=== PATIENT | male | born 1965 | race Caucasian/White ===

== ENCOUNTER 2016-04-08 11:31 | Inpatient (IN) | payer MEDICAID, OTHER ==
[~2016-04-08] VITALS: Ht 177.8 cm; Wt 77.1 kg
[~2016-04-08 11:31] MED LIST: COZAAR50 MG PO; ORETIC25 MG PO
[2016-04-08 11:36] VITALS: BP 146/83
--- NOTE | 2016-04-08 12:42 | NUR ---
PT AMBULATED TO BED 3 AT THIS TIME.
--- NOTE | 2016-04-08 12:44 | NUR ---
Patient being evaluated by physician at bedside.
[2016-04-08] MEDS ORDERED: ONDANSETRON 4 MG/2 ML VIAL IVP ONE (12:45)
[2016-04-08] MEDS ORDERED: ASPIRIN 325 MG TAB PO ONE (12:45)
[2016-04-08] MEDS ORDERED: fentaNYL 0.05 MG/ML VIAL IVP ONE (12:45)
--- NOTE | 2016-04-08 13:20 | NUR ---
50/M HERE FOR CHEST PAIN X4 DAYS. HX HTN, HYPERLIPIDEMIA. VSS. DENIES N/V/D. PT PLACED ON MONITOR. CP PROTOL IN PLACE. BECKY PALACIO MADE AWARE.
--- NOTE | 2016-04-08 16:00 | NUR ---
Patient will be admitted to care of DR WRIGHT. Admited to TELE. Will go to [id number]. Belongings list completed. Report to MAURICIO MADRIGAL.
[2016-04-08] MEDS ORDERED: ACETAMINOPHEN 325 MG TAB PO PRN (16:15)
[2016-04-08] MEDS ORDERED: MORPHINE SULFATE 2 MG/ML SYR IVP PRN (16:15)
[2016-04-08] MEDS ORDERED: NITROGLYCERIN 0.4 MG TAB SL PRN (16:15)
[2016-04-08] MEDS ORDERED: ONDANSETRON 4 MG/2 ML VIAL IVP PRN (16:15)
--- NOTE | 2016-04-08 16:16 | NUR ---
TRANSFERRED TO [facility] VIA GURNEY WITH EMT.
--- NOTE | 2016-04-08 16:30 | NUR ---
ADMITTED PT FROM ER TO TELE RM 119A, DX CHEST PAIN; NO C/O OF CHEST PAIN OR SOB AT THIS TIME, VSS. IV SL TO RIGHT FA, SITE ASYMPTOMATIC. SKIN INTACT. ADMIT ORDERS ACKNOWLEDGED. ROUTINE/PLAN OF CARE DISCUSSED AND REVIEWED, ORIENTED PT TO ROOM AND CALL LIGHT. SAFETY PRECAUTIONS OBSERVED AND MAINTAINED. ENCOURAGED PT TO CALL FOR ASSISTANCE NEEDED.
[2016-04-08 16:46] VITALS: BP 157/89
[2016-04-08] MEDS ORDERED: METOPROLOL 25 MG TAB PO SCH (17:00)
[2016-04-08] MEDS: HYDROcodone/APAP 5/325 MG 1 TAB TAB PO PRN (17:07)
--- NOTE | 2016-04-08 17:15 | NUR ---
ADMINISTERED DUE METOPROLOL ORDERED WITH EDUCATION; NORCO PO GIVEN FOR C/O UPPER BACK PAIN, SEE PAIN ASSESSMENT; PT TOLERATED WELL. SPOKE WITH DR HYDE BY TELEPHONE, LAUREN ENTERED AND CARRIED OUT FOR ECHO AND STRESS TEST IN AM. DISCUSSED PLAN OF CARE WITH PATIENT. WILL CONTINUE TO MONITOR.
--- NOTE | 2016-04-08 17:31 | NUR ---
DR WRIGHT AT BEDSIDE TO EVALUATE PT.
--- NOTE | 2016-04-08 18:43 | NUR ---
PT SEEN AND ASSESSED BY DR HYDE, NEW ORDERS ACKNOWLEDGED AND CARRIED OUT.
--- NOTE | 2016-04-08 19:27 | NUR ---
CONDITION STABLE, ENDORSED PLAN OF CARE TO WELFARE CASE WORKER.
--- NOTE | 2016-04-08 19:28 | NUR ---
RECEIVED REPORT FROM DAY NURSEROHAN. PATIENT RESTING IN BED. NO RESPIRATORY DISTRESS, SOB, OR DISCOMFORT. PATIENT DENIES ANY CHEST PAIN AT THIS TIME. INITIAL ASSESSMENT AND BODY CHECK DONE. PATIENT IS AOX4, SKIN IS INTACT, IV ACCESS TO RIGHT FOREARM 20G, PATENT. DISCUSSED PLAN OF CARE, MEDICATION REGIMENT, AND PAIN MANAGEMENT WITH PATIENT. PLACED PATIENT ON SAFETY PRECAUTIONS. CALL LIGHT LEFT WITHIN REACH, WILL CONTINUE TO MONITOR.
[2016-04-08 20:00] VITALS: BP 132/78
[2016-04-08] MEDS: NITROGLYCERIN 2% 1 GM PKT TP SCH (20:28)
[2016-04-08] MEDS: SIMVASTATIN 20 MG TAB PO SCH (20:29)
--- NOTE | 2016-04-08 22:06 | NUR ---
PATIENT RESTING IN BED, WATCHING TELEVISION. NO RESPIRATORY DISTRESS, SOB, OR DISCOMFORT. CALL LIGHT LEFT WITHIN REACH, WILL CONTINUE TO MONITOR.
[2016-04-09] VITALS: BP 130/71
--- NOTE | 2016-04-09 00:57 | NUR ---
PATIENT IN BED, SLEEPING. NO RESPIRATORY DISTRESS, SOB, OR DISCOMFORT. CALL LIGHT LEFT WITHIN REACH, WILL CONTINUE TO MONITOR.
--- NOTE | 2016-04-09 03:04 | NUR ---
PATIENT ASLEEP. NO RESPIRATORY DISTRESS, SOB, OR DISCOMFORT. CALL LIGHT LEFT WITHIN REACH, WILL CONTINUE TO MONITOR.
[2016-04-09 04:00] VITALS: BP 129/78
[2016-04-09] MEDS: NITROGLYCERIN 2% 1 GM PKT TP SCH ×4 (05:00→21:06)
--- NOTE | 2016-04-09 05:02 | NUR ---
NITRO-BID PASTE HELD AT THIS TIME DUE TO CARDIAC STRESS TEST TO BE DONE IN THE AM. PATIENT DENIES ANY CHEST PAIN AT THIS TIME. NO RESPIRATORY DISTRESS, SOB, OR DISCOMFORT. CALL LIGHT LEFT WITHIN REACH, WILL CONTINUE TO MONITOR.
--- NOTE | 2016-04-09 06:06 | NUR ---
PATIENT SLEEPING. NO RESPIRATORY DISTRESS, SOB, OR DISCOMFORT. CALL LIGHT LEFT WITHIN REACH, WILL CONTINUE TO MONITOR.
--- NOTE | 2016-04-09 07:18 | NUR ---
REPORT GIVEN TO DAY NURSE, BABATUNDE GARY) AND ROHAN. PATIENT RESTING IN BED, STABLE. NO RESPIRATORY DISTRESS, SOB, OR DISCOMFORT. ALL NEEDS ATTENDED TO DURING SHIFT, CALL LIGHT LEFT WITHIN REACH.
--- NOTE | 2016-04-09 07:30 | NUR ---
RECEIVED REPORT FROM THE MUSEUM ATTENDANT NURSE AT BEDSIDE. PATIENT IS AWAKE, ALERT, ORIENTED X4. IV ON THE RIGHT FOREARM INTACT AND PATENT. VITALS TAKEN AND WITHIN THE NORMAL LIMIT. ON ROOM AIR, NO SOB. DENIED ANY PAIN. NO S/S OF DISTRESS. SKIN INTACT. SAFETY MEASURED CHECKED AND WILL CONTINUE TO MONITOR. CALL LIGHT WITHIN REACH.
[2016-04-09 08:00] VITALS: BP 137/67
[2016-04-09] MEDS: ASPIRIN 81 MG TAB.CHEW PO SCH ×2 (08:00→09:00)
--- NOTE | 2016-04-09 08:28 | NUR ---
PATIENT REFUSED TREADMILL STRESS TEST DUE TO HIP PAIN. DR HYDE MADE AWARE, LEXISCAN STRESS TEST ORDERED FOR 1230 TODAY. DISCUSSED PLAN OF CARE WITH PT INCLUDING NPO STATUS, REINFORCED SMOKING POLICY; PT VERBALIZES UNDERSTANDING AND COMPLIANCE.
[2016-04-09] MEDS ORDERED: REGADENOSON 0.4 MG/5 ML SYR IV ONE (08:45)
[2016-04-09] MEDS: HYDROCHLOROTHIAZIDE 25 MG TAB PO SCH (09:00)
[2016-04-09] MEDS: LOSARTAN 50 MG TAB PO SCH (09:00)
--- NOTE | 2016-04-09 09:00 | NUR ---
DUE MEDS NOT GIVEN BECAUSE PT IS NPO. PATIENT ASLEEP, NO S/S OF DISTRESS. CALL LIGHT WITHIN REACH.
--- NOTE | 2016-04-09 09:20 | NUR ---
PATIENT HAS BEEN SCREENED AND CATEGORIZED MODERATE NUTRITION RISK. PATIENT WILL BE SEEN WITHIN 3-5 DAYS OF ADMISSION. 04/11/16-04/13/[address]
[2016-04-09] MEDS: ENOXAPARIN 40 MG/0.4 ML SYR SUBQ SCH (09:27)
--- NOTE | 2016-04-09 11:30 | NUR ---
PT TAKEN TO NUCLEAR MED FOR LEXISCAN.
[2016-04-09] MEDS ORDERED: REGADENOSON 0.4 MG/5 ML SYR IV SCH (12:30)
[2016-04-09] MEDS ORDERED: ASPIRIN ADULT L81 M1 PO (13:23)
[2016-04-09] MEDS ORDERED: LOPRESSOR25 MG PO (13:23)
--- NOTE | 2016-04-09 14:14 | NUR ---
LEXISCAN STRESS TEST DONE
[2016-04-09 14:15] VITALS: BP 149/72
--- NOTE | 2016-04-09 14:20 | NUR ---
PT RETURNED TO UNIT IN STABLE CONDITION, VSS. SITTING UP EATING LUNCH TRAY. NO COMPLAINTS OF PAIN OR DISTRESS AT THIS TIME. SAFETY PRECAUTIONS MAINTAINED. PER NM TECH, ACCURATE RESULTS COULD NOT BE PRODUCED DUE TO MACHINE MALFUNCTIONING.
--- NOTE | 2016-04-09 14:48 | NUR ---
[id number] INITIAL REVIEW FAXED TO [facility] [phone]
[2016-04-09 16:00] VITALS: BP 114/57
--- NOTE | 2016-04-09 16:00 | NUR ---
VSS, PT RESTING COMFORTABLY IN BED.
[2016-04-09] MEDS: METOPROLOL 25 MG TAB PO SCH (17:00)
--- NOTE | 2016-04-09 18:00 | NUR ---
CONDITION STABLE. NO S/S DISTRESS. ALL NEEDS ARE MET AT THIS TIME.
--- NOTE | 2016-04-09 19:19 | NUR ---
CONDITION STABLE, ENDORSED PLAN OF CARE TO WELDING PANTOGRAPH OPERATOR RN.
--- NOTE | 2016-04-09 19:25 | NUR ---
RECEIVED REPORT FROM DAY NURSEROHAN. PATIENT RESTING IN BED, WATCHING TELEVISION. NO RESPIRATORY DISTRESS, SOB, OR DISCOMFORT. PATIENT DENIES ANY PAIN AT THIS TIME. INITIAL ASSESSMENT AND BODY CHECK DONE. PATIENT IS AOX4, SKIN IS INTACT, IV ACCESS TO LEFT WRIST 22G, PATENT. DISCUSSED PLAN OF CARE, MEDICATION REGIMENT, AND PAIN MANAGEMENT WITH PATIENT. PATIENT VERBALIZED UNDERSTANDING. PLACED PATIENT ON SAFETY PRECAUTIONS. CALL LIGHT LEFT WITHIN REACH, WILL CONTINUE TO MONITOR.
[2016-04-09 20:00] VITALS: BP 115/74
--- NOTE | 2016-04-09 20:12 | NUR ---
DR. HYDE CALLED IN REGARDS TO LEXISCAN RESULTS. UPDATED MD OF RESULTS NOT UP YET. MD VERBALIZED UNDERSTANDING.
[2016-04-09] MEDS: SIMVASTATIN 20 MG TAB PO SCH (21:06)
--- NOTE | 2016-04-09 22:11 | NUR ---
PATIENT IN BED, SLEEPING. NO RESPIRATORY DISTRESS, SOB, OR DISCOMFORT. CALL LIGHT LEFT WITHIN REACH, WILL CONTINUE TO MONITOR.
[2016-04-10] VITALS: BP 119/76
--- NOTE | 2016-04-10 01:07 | NUR ---
PATIENT ASLEEP. NO RESPIRATORY DISTRESS, SOB, OR DISCOMFORT. CALL LIGHT LEFT WITHIN REACH, WILL CONTINUE TO MONITOR.
--- NOTE | 2016-04-10 03:02 | NUR ---
PATIENT SLEEPING. NO RESPIRATORY DISTRESS, SOB, OR DISCOMFORT. CALL LIGHT LEFT WITHIN REACH, WILL CONTINUE TO MONITOR.
[2016-04-10 04:00] VITALS: BP 135/80
[2016-04-10] MEDS: NITROGLYCERIN 2% 1 GM PKT TP SCH ×2 (05:33→13:00)
--- NOTE | 2016-04-10 06:03 | NUR ---
PATIENT IN BED, ASLEEP. NO RESPIRATORY DISTRESS, SOB, OR DISCOMFORT. CALL LIGHT LEFT WITHIN REACH, WILL CONTINUE TO MONITOR.
--- NOTE | 2016-04-10 07:15 | NUR ---
REPORT GIVEN TO DAY NURSEROHAN. PATIENT RESTING IN BED, STABLE. NO RESPIRATORY DISTRESS, SOB, OR DISCOMFORT. ALL NEEDS ATTENDED TO DURING SHIFT, CALL LIGHT LEFT WITHIN REACH.
--- NOTE | 2016-04-10 07:30 | NUR ---
RECEIVED PT RESTING COMFORTABLY IN BED, AAOX4, NO C/O OF CHEST PAIN OR SOB AT THIS TIME. IV SL TO LEFT WRIST, SITE ASYMPTOMATIC. ROUTINE/PLAN OF CARE DISCUSSED AND REVIEWED, PT VERBALIZES UNDERSTANDING AND COMPLIANCE. SAFETY PRECAUTIONS OBSERVED AND MAINTAINED. ENCOURAGED PT TO CALL FOR ASSISTANCE NEEDED.
[2016-04-10 08:00] VITALS: BP 139/45
[2016-04-10] MEDS: METOPROLOL 25 MG TAB PO SCH (08:00)
[2016-04-10] MEDS: HYDROCHLOROTHIAZIDE 25 MG TAB PO SCH (09:00)
[2016-04-10] MEDS: ASPIRIN 81 MG TAB.CHEW PO SCH (09:00)
[2016-04-10] MEDS: LOSARTAN 50 MG TAB PO SCH (09:00)
[2016-04-10] MEDS: ENOXAPARIN 40 MG/0.4 ML SYR SUBQ SCH (09:00)
--- NOTE | 2016-04-10 09:03 | NUR ---
VS NOTED. HR BELOW 60, HELD METOPROLOL PO. PT REFUSED LOVENOX, BELIEVES HE IS NOT AT RISK SINCE HE AMBULATES OCCASIONALLY. ENCOURAGED PT TO WALK AROUND UNIT TODAY. ADMINISTERED REMAINING SCHEDULED MED ORDERED WITH EDUCATION. PT TOLERATED WELL. INDEPENDENT ADLs OBSERVED. WILL CONTINUE TO MONITOR.
[2016-04-10] MEDS ORDERED: CHLORHEXADINE GLUC 2% CLOTH TP SCH (10:00)
[2016-04-10] MEDS ORDERED: MUPIROCIN 2% OINT 22 GM TUBE TP SCH (10:00)
[2016-04-10 12:00] VITALS: BP 132/73
--- NOTE | 2016-04-10 13:00 | NUR ---
HR BELOW 60. PT RESTING QUIETLY IN BED, DENIES ANY PAIN OR DISTRESS. HELD SCHEDULED NITRO. AWARE.
[2016-04-10] MEDS: HYDROcodone/APAP 5/325 MG 1 TAB TAB PO PRN (13:39)
[2016-04-10 16:00] VITALS: BP 131/82
[2016-04-10 16:20] VITALS: BP 131/82
--- NOTE | 2016-04-10 16:30 | NUR ---
DISCHARGE PRESCRIPTIONS, INSTRUCTIONS, AND EDUCATION GIVEN, DISCUSSED WITH PT AT BEDSIDE; PT VERBALIZES UNDERSTANDING AND COMPLIANCE. ALL FORMS ARE SIGNED. DC'D IV WITH CANNULA INTACT. CONDITION STABLE.
--- NOTE | 2016-04-10 16:45 | NUR ---
DISCHARGED PT HOME AT THIS TIME IN STABLE CONDITION.
== END 2016-04-10 16:45 | disposition home or self-care (01) | DRG 203 ==
LOC: MED 11:31 → MTU 14:38
PROVIDERS: ADMIT Hospitalist; ATTEND Hospitalist
DX: R07.89 Other chest pain (principal); E87.1 Hypo-osmolality and hyponatremia; I10 Essential (primary) hypertension; E78.5 Hyperlipidemia, unspecified; K21.9 Gastro-esophageal reflux disease without esophagitis; F12.90 Cannabis use, unspecified, uncomplicated; F17.210 Nicotine dependence, cigarettes, uncomplicated; Z98.890 Other specified postprocedural states; Z71.6 Tobacco abuse counseling; Z79.899 Other long term (current) drug therapy; Z86.73 Personal history of transient ischemic attack (TIA), and cerebral infarction without residual deficits; Z82.49 Family history of ischemic heart disease and other diseases of the circulatory system

== ENCOUNTER 2017-10-10 10:25 | Inpatient (IN) | payer MEDICAID, OTHER ==
[~2017-10-10] VITALS: Ht 177.8 cm; Wt 84.8 kg
[~2017-10-10 10:25] MED LIST changes: +ASPI81CT95 PO; +COZ50 PO; -COZAAR50 MG PO; +METO25TA PO; +ORE25 PO; -ORETIC25 MG PO
[2017-10-10 10:33] VITALS: BP 118/77
--- NOTE | 2017-10-10 10:39 | NUR ---
PATIENT AMBULATED TO BED 3 AT THIS TIME.
--- NOTE | 2017-10-10 10:39 | NUR ---
REPORT GIVEN TO MAURICIO BURCH
--- NOTE | 2017-10-10 10:40 | NUR ---
PT. CAME INTO THE ED DUE TO ABD PAIN X 2 DAYS. PT. STATES " ON TUESDAY I WOKE UP AND MY STOMACH HURTED AND I TRIED TO GO POOP BUT I COULDNT UNTIL LATER THAT NIGHT AND IT WAS REALLY HARD AND A LITTLE BIT AND EVER SINCE THEN I HAVNT BEEN ABLE TO GO". PT. DENIES ANY N/V/D. PT. HAS 3/10 PAIN THAT STARTS IN LOWER ABD AND GROIN AREA THAT RADIATES ALL OVER ABD. PT. HAS ROUND AND FIRM ABD THAT IS TENDER UPON PALPATION IN THE LOWER ABD. ER MD NOTIFIED. WILL CONTINUE TO MONITOR.
[2017-10-10] MEDS ORDERED: NACL 0.9% 1,000 ML IV SCH (11:17)
[2017-10-10] MEDS ORDERED: KETOROLAC 30 MG/ML VIAL IVP ONE (11:20)
--- NOTE | 2017-10-10 11:30 | NUR ---
PT. IS RESTING COMFORTABLY IN BED, RR EVEN AND UNLABORED. WILL CONTINUE TO MONITOR.
[2017-10-10 11:48] LABS: APPEARANCE,URINE CLEAR (CLEAR); BILIRUBIN,URINE 1+ (NEGATIVE); BLOOD, URINE 1+ (NEGATIVE); COLOR,URINE YELLOW (YELLOW); LEUKOCYTE ESTERASE ,URINE NEGATIVE (NEGATIVE); NITRITE, URINE NEGATIVE (NEGATIVE); UGLUCOSE NEGATIVE (NEGATIVE)
[2017-10-10 11:58] LABS: RBC,URINE 0-5 (RARE) /HPF (0-5); WBC,URINE 0-5 (RARE) /HPF (0-5)
[2017-10-10 11:59] LABS: ALBUMIN 3.6 g/dL (3.4-5.0); CARBON DIOXIDE 28.1 mmol/L (21-32); CREATININE 1.4 mg/dL (0.7-1.3); POTASSIUM 4.1 mmol/L (3.5-5.1); TOTAL BILIRUBIN 0.8 mg/dL (0.0-1.0)
--- NOTE | 2017-10-10 12:30 | NUR ---
PT. RESTING COMFORTABLY IN BED, RR EVEN AND UNLABORED. DENIES ANY PAIN AT THIS TIME. BED IN LOWEST POSITION WILL CONTINUE TO MONITOR.
[2017-10-10] MEDS ORDERED: PIPERACILLIN/TAZOBACTAM 3.375 GM in DEXTROSE 5% 50 ML IV ONE (12:55)
[2017-10-10] MEDS ORDERED: PIPERACILLIN/TAZOBACTAM 3.375 GM VIAL IV ONE (13:06)
--- NOTE | 2017-10-10 13:30 | NUR ---
PT. RESTING COMFORTABLY, RR EVEN AND UNLABORED. WILL CONTINUE TO MONITOR.
[2017-10-10 13:38] LABS: BASOPHILS % (AUTO) 0.2 % (0.0-2.0); EOSINOPHILS # (AUTO) 0.1 K/uL (0-0.4); EOSINOPHILS % (AUTO) 0.3 % (0.0-4.0); HEMATOCRIT 43.8 % (36-52); HEMOGLOBIN 14.5 g/dL (12.0-18.0); LYMPHOCYTES # (AUTO) 1.6 K/uL (2.0-11.5); MEAN CORPUSCULAR HEMOGLOBIN 30 pg (27-31); MEAN CORPUSCULAR HGB CONC 33 g/dL (33-37); MEAN CORPUSCULAR VOLUME 91.2 fL (80-94); MONOCYTES # (AUTO) 1.8 K/uL (0.8-1.0); MONOCYTES % (AUTO) 10.3 % (1.7-9.3); NEUTROPHILS # (AUTO) 13.9 K/uL (1.8-7.7); NEUTROPHILS % (AUTO) 80.2 % (42.2-75.2); PLATELET COUNT (AUTO) 297 K/uL (140-450); RED CELL DISTRIBUTION WIDTH 14.1 % (11.6-13.7); WHITE BLOOD COUNT (AUTO) 17.4 K/uL (4.8-10.8)
--- NOTE | 2017-10-10 14:45 | NUR ---
PT. RESTING COMFORTABLY IN BED, RR EVEN AND UNLABORED. BED IN LOWEST POSITION. WILL CONTINUE TO MONITOR.
[2017-10-10] MEDS: LACTATED RINGERS 1,000 ML IV SCH (14:54)
[2017-10-10] MEDS ORDERED: ACETAMINOPHEN 325 MG TAB PO PRN (14:55)
[2017-10-10] MEDS ORDERED: ALBUTEROL 0.083% 2.5 MG/3 ML NEBU IH PRN (14:55)
[2017-10-10] MEDS ORDERED: ONDANSETRON 4 MG/2 ML VIAL IVP PRN (14:55)
--- NOTE | 2017-10-10 16:11 | NUR ---
Patient will be admitted to care of DR. FARFAN . Admited to MED SURG . Will go to room 113. Belongings list completed. Report to MAURICIO PEREZ
[2017-10-10 16:20] VITALS: BP 132/78
--- NOTE | 2017-10-10 16:20 | NUR ---
PT ARRIVED FROM ER, REPORT RECEIVED FROM NURSE, PT AAOX4, RESP EVEN UNLABORED, SKIN WARM DRY COLRO WNL, AMBULATES WELL WITH STEADY GAIT FROM HALLWAY TO BED, PT DENIES PAIN AT THIS TIME, PLAN OF CARE REVIEWED, PT ORIENTED TO ROOM AND FLOOR, SAFETY MEASURS IN PLACE, WILL CONTINUE TO MONITOR.
[2017-10-10] MEDS: MORPHINE SULFATE 4 MG/ML SYR IVP PRN (17:13)
[2017-10-10] MEDS: AMPICILLIN/SULBACTAM 1.5 GM in NACL 0.9% 50 ML IV SCH ×2 (18:18→23:52)
--- NOTE | 2017-10-10 19:28 | NUR ---
REPORT GIVEN TO GEOSCIENCES FACULTY MEMBER NURSE EDWIN MARTÍNEZ, PT IN STABLE CONDITION.
--- NOTE | 2017-10-10 19:30 | NUR ---
RECEIVED REPORT FROM DAYSHIFT NURSE AT BEDSIDE FOR CONTINUITY OF CARE PT AAOX4. PT IV NOTED LAC 22G LR 100ML/HR. NO SOB NO S/S OF DISTRESS ON RA. BED LOWERED CALL LIGHT WITHIN REACH WILL CONTINUE TO MONITOR.
[2017-10-10 20:00] VITALS: BP 125/80
[2017-10-10] MEDS: NICOTINE TRANSD SYS 21 MG/24 HR PATCH TD SCH (20:20)
[2017-10-10] MEDS: MORPHINE SULFATE 2 MG/ML SYR IVP PRN (23:52)
--- NOTE | 2017-10-11 00:52 | NUR ---
ADMIN PAIN MED 1 HR AGO. PT IS RESTING IN BED. WILL CONTINUE TO MONITOR.
[2017-10-11] MEDS: LACTATED RINGERS 1,000 ML IV SCH ×2 (00:54→14:06)
[2017-10-11] MEDS: LORazepam 2 MG/ML VIAL IVP PRN (01:20)
--- NOTE | 2017-10-11 02:20 | NUR ---
PT WAS GIVEN MORPHINE 4MG 1 HR AGO. PT IS SLEEPING, 0/10 PAIN. WILL CONTINUE TO MONITOR.
[2017-10-11] MEDS: AMPICILLIN/SULBACTAM 1.5 GM in NACL 0.9% 50 ML IV SCH ×3 (06:26→18:25)
[2017-10-11 06:52] LABS: BASOPHILS # (AUTO) 0.1 K/uL (0.00-0.22); BASOPHILS % (AUTO) 0.4 % (0.0-2.0); EOSINOPHILS # (AUTO) 0.2 K/uL (0-0.4); EOSINOPHILS % (AUTO) 1.6 % (0.0-4.0); HEMATOCRIT 40.4 % (36-52); HEMOGLOBIN 13.8 g/dL (12.0-18.0); LYMPHOCYTES # (AUTO) 1.6 K/uL (2.0-11.5); LYMPHOCYTES % (AUTO) 10.1 % (20.5-51.1); MEAN CORPUSCULAR HEMOGLOBIN 31 pg (27-31); MEAN CORPUSCULAR HGB CONC 34 g/dL (33-37); MEAN CORPUSCULAR VOLUME 90.5 fL (80-94); MONOCYTES # (AUTO) 1.5 K/uL (0.8-1.0); MONOCYTES % (AUTO) 9.9 % (1.7-9.3); NEUTROPHILS # (AUTO) 12.1 K/uL (1.8-7.7); PLATELET COUNT (AUTO) 266 K/uL (140-450); RED BLOOD CELL COUNT(AUTO) 4.47 MIL/uL (4.20-6.10); RED CELL DISTRIBUTION WIDTH 13.9 % (11.6-13.7); WHITE BLOOD COUNT (AUTO) 15.5 K/uL (4.8-10.8)
--- NOTE | 2017-10-11 07:46 | NUR ---
ENDORSED REPORT TO DAYSHIFT NURSE AT BEDSIDE FOR CONTINUITY OF CARE.
--- NOTE | 2017-10-11 07:50 | NUR ---
RECEIVED PT FROM MASTER CONTROL SUPERVISOR NURSE, PT IS AWAKE LYING ON THE BED WITH SIDE RAILS UP AND CALL LIGHT WITHIN REACH. PT HAS AN IV LINE ON THE LEFT AC G.22, INTACT WITH LR AT 100ML/HR. PT WAS ON NPO AND PLAN OF CARE WAS DISCUSSED AND PT VERBALIZED UNDERSTANDING. NO SIGN OF DISTRESS NOTED ON THE PT. WILL CONTINUE TO MONITOR.
[2017-10-11 08:00] VITALS: BP 125/75
--- NOTE | 2017-10-11 08:20 | NUR ---
PT IS AWAKE AND VITAL SIGN TAKE AND IS STABLE. PT IS ON CONTACT ISOLATION. NO SIGN OF DISTRESS NOTED AND WILL CONTINUE TO MONITOR.
[2017-10-11 09:03] LABS: ALBUMIN 3.3 g/dL (3.4-5.0); CARBON DIOXIDE 27.8 mmol/L (21-32); CREATININE 1.5 mg/dL (0.7-1.3); MAGNESIUM 1.3 mg/dL (1.8-2.4); POTASSIUM 3.8 mmol/L (3.5-5.1); TOTAL BILIRUBIN 0.7 mg/dL (0.0-1.0)
[2017-10-11] MEDS: ENOXAPARIN 40 MG/0.4 ML SYR SUBQ SCH (09:07)
--- NOTE | 2017-10-11 09:26 | NUR ---
PATIENT HAS BEEN SCREENED AND CATEGORIZED MODERATE NUTRITION RISK. PATIENT WILL BE SEEN WITHIN 3-5 DAYS OF ADMISSION. 10/13/17 - 10/15/[address]
[2017-10-11] MEDS: MORPHINE SULFATE 2 MG/ML SYR IVP PRN ×2 (10:41→21:20)
--- NOTE | 2017-10-11 11:09 | NUR ---
CM NOTE INITIAL REVIEW FAXED TO [facility] [phone] AND TO DESHAWN ROSALES [phone] PH# [phone] EXT [phone], EPIFANIO AZUL [phone]
--- NOTE | 2017-10-11 14:10 | NUR ---
STARTED A NEW IV FLUID BAG TO THE PT.
--- NOTE | 2017-10-11 15:10 | NUR ---
PT WAS SEEN AND TALKED TO BY DR. FARFAN.
[2017-10-11 16:00] VITALS: BP 135/84
--- NOTE | 2017-10-11 18:25 | NUR ---
PT IS AWAKE AND MEDICATION GIVEN VIA IVPB. PT TOLERATED IT AND NO SIGN OF DISTRESS NOTED. WILL MONITOR.
--- NOTE | 2017-10-11 19:15 | NUR ---
ENDORSED PT TO KINESIOLOGIST NURSEEDWIN FOR CONTINUITY OF CARE. PT IS STABLE AT THIS TIME.
--- NOTE | 2017-10-11 19:30 | NUR ---
RECEIVED REPORT FFOM DAYSHIFT NURSE AT BEDSIDE. IV NOTED RFA 20 G NS 100ML/HR. NO SOB NO S/S OF DISTRESS ON RA.BED LOWERED CALL LIGHT WITHIN REACH WILL CONTINUE TO MONITOR.
[2017-10-11 20:00] VITALS: BP 133/76
[2017-10-11] MEDS: NICOTINE TRANSD SYS 21 MG/24 HR PATCH TD SCH (21:20)
--- NOTE | 2017-10-11 22:20 | NUR ---
MORPHINE WAS ADMIN 1HR AGO AND PT IS CURRENTLY SLEEPING NO SOB NO S/S OF DISTRESS. WILL CONTINUE TO MONITOR.
[2017-10-12] MEDS: LACTATED RINGERS 1,000 ML IV SCH ×2 (01:27→06:18)
[2017-10-12] MEDS: AMPICILLIN/SULBACTAM 1.5 GM in NACL 0.9% 50 ML IV SCH ×4 (01:49→18:37)
[2017-10-12] MEDS: LORazepam 2 MG/ML VIAL IVP PRN (01:50)
--- NOTE | 2017-10-12 02:50 | NUR ---
ADMIN ADIVAN FOR ANXIETY. PT RESTING IN BED MEDICATION WAS EFFECTIVE.
--- NOTE | 2017-10-12 07:20 | NUR ---
ENDORSED REPORT TO DAYSIAFT NURSE FOR CONTINUITY OF CARE.
--- NOTE | 2017-10-12 07:25 | NUR ---
RECEIVED PT FROM CASHIER HOST/HOSTESS NURSEEDWIN, PT IS AWAKE LYING ON THE BED WITH SIDE RAILS UP AND CALL LIGHT WITHIN REACH, PT HAS AN IV LINE ON THE RIGHT FA G. 22 INTACT WITH LR AT 100ML/HR. PLAN OF CRE WAS DISCUSSED AND PT VERBALIZED UNDERSTANDING. NO SIGN OF DISTRESS NOTED AND WILL CONTINUE TO MONITOR.
--- NOTE | 2017-10-12 07:55 | NUR ---
PT IS AWAKE AND IS HAVING HIS BREAKFAST, VITAL SIGNS TAKEN AND IS STABLE. NO SIGN OF DISTRESS NOTED. WILL CONTINEU TO MONITOR.
[2017-10-12 08:00] VITALS: BP 141/84
[2017-10-12] MEDS: ENOXAPARIN 40 MG/0.4 ML SYR SUBQ SCH (09:41)
[2017-10-12 10:18] LABS: BASOPHILS % (AUTO) 0.3 % (0.0-2.0); EOSINOPHILS # (AUTO) 0.2 K/uL (0-0.4); EOSINOPHILS % (AUTO) 1.5 % (0.0-4.0); HEMATOCRIT 39.2 % (36-52); LYMPHOCYTES # (AUTO) 1.4 K/uL (2.0-11.5); LYMPHOCYTES % (AUTO) 10.2 % (20.5-51.1); MEAN CORPUSCULAR HEMOGLOBIN 30 pg (27-31); MEAN CORPUSCULAR HGB CONC 33 g/dL (33-37); MEAN CORPUSCULAR VOLUME 91.6 fL (80-94); MONOCYTES # (AUTO) 1.1 K/uL (0.8-1.0); MONOCYTES % (AUTO) 8.2 % (1.7-9.3); NEUTROPHILS # (AUTO) 10.9 K/uL (1.8-7.7); NEUTROPHILS % (AUTO) 79.8 % (42.2-75.2); PLATELET COUNT (AUTO) 291 K/uL (140-450); RED BLOOD CELL COUNT(AUTO) 4.28 MIL/uL (4.20-6.10); RED CELL DISTRIBUTION WIDTH 13.2 % (11.6-13.7); WHITE BLOOD COUNT (AUTO) 13.7 K/uL (4.8-10.8)
[2017-10-12 10:43] LABS: ANION GAP 11.2 (8-16); CARBON DIOXIDE 28.8 mmol/L (21-32); CREATININE 1.1 mg/dL (0.7-1.3)
[2017-10-12] MEDS: MORPHINE SULFATE 2 MG/ML SYR IVP PRN (12:43)
[2017-10-12] MEDS ORDERED: AMOX-999 PO (14:22)
--- NOTE | 2017-10-12 14:29 | NUR ---
Clinical REVIEW FAXED TO [facility] [phone] AND TO DESHAWN ROSALES [phone] # [phone]
[2017-10-12] MEDS ORDERED: MAGNESIUM SULFATE 50% 1,000 MG in NACL 0.9% 50 ML IV SCH (14:30)
--- NOTE | 2017-10-12 14:30 | NUR ---
DR. FARFAN CAME TO PT'S ROOM AND SPOKE TO THE PT REGARDING THE POSSIBLE DISCHARGE IF PT TOLERATES HIS REGULAR DIET.
--- NOTE | 2017-10-12 14:35 | NUR ---
PT IS AWAKE AND SEATED ON THE BED, PT WAS INFORMED THAT MAGNESIUM LEVEL IS LOW, 1.[address] FARFAN PRESCRIBED A MAGNESIUM RIDER VIA IVPB. MEDICATION GIVEN AND NO REACTION NOTED ON THE PT. WILL MONITOR.
[2017-10-12] MEDS ORDERED: MAGNESIUM SULFATE 1GM in DEXTROSE 5% 100 ML PREMIX IV SCH (15:00)
[2017-10-12 16:00] VITALS: BP 150/85
--- NOTE | 2017-10-12 17:20 | NUR ---
DISCHARGE ORDER FOR THE PT WAS CANCELLED, CHARGE NURSE LATONYA SPOKE TO THE PT AND PT VERBALIZED HIS CONCERN REGARDING THE MD DECISION FOR DISCHARGE.
--- NOTE | 2017-10-12 18:37 | NUR ---
PT IS AWAKE AND SEATED ON THE BED, MEDICATION GIVEN VIA IVPB AND PT TOLERATED IT. NO REACTION NOTED. WILL CONTINUE TO MONITOR.
--- NOTE | 2017-10-12 19:10 | NUR ---
ENDORSED PT TO RESEARCH ASSISTANT MEMBER NURSEEDWIN FOR CONTINUITY OF CARE. PT IS STABLE AT THIS TIME.
--- NOTE | 2017-10-12 19:11 | NUR ---
RECEIVED REPORT FROM DAYSHIFT NURSE AT BEDSIDE FOR CONTINUITY OF CARE. PT AAOX4. PT IV NOTED LAC 22G SALINE LOCK. PT HAS NO SOB NO S/S OF DISTRESS ON RA. BED LOWERED CALL LIGHT WITHIN REACH WILL CONTINUE TO MONITOR.
[2017-10-12] MEDS: NICOTINE TRANSD SYS 21 MG/24 HR PATCH TD SCH (20:41)
[2017-10-12] MEDS: MORPHINE SULFATE 4 MG/ML SYR IVP PRN (21:39)
--- NOTE | 2017-10-12 22:40 | NUR ---
PT RECEIVED PAIN MED 1HR AGO. PT IS SLEEPING NO SOB NO S/S OF DISTRESS WILL CONTINUE TO MONITOR.
[2017-10-13] VITALS: BP 155/90
[2017-10-13] MEDS: AMPICILLIN/SULBACTAM 1.5 GM in NACL 0.9% 50 ML IV SCH ×4 (00:47→18:00)
[2017-10-13] MEDS: LORazepam 2 MG/ML VIAL IVP PRN (00:50)
--- NOTE | 2017-10-13 01:50 | NUR ---
RECEIVED ADIVAN 1 HR AGO FOR ANXIETY. PT IS SLEEPING. SO MEDICATION WORKED.
--- NOTE | 2017-10-13 07:15 | NUR ---
ENDORSED REPORT TO DAYSHIFT NURSE AT BEDSIDE FOR CONTINUITY OF CARE.
[2017-10-13 08:00] VITALS: BP 130/95
--- NOTE | 2017-10-13 09:15 | NUR ---
PT REQUESTED TO NOT RELEASE INFORMATION TO ANYONE WHO CALLS FOR HIM.
[2017-10-13] MEDS: ENOXAPARIN 40 MG/0.4 ML SYR SUBQ SCH (09:54)
--- NOTE | 2017-10-13 10:20 | NUR ---
PT RESTING IN BED NO SIGNS OF DISTRESS, REPORTED A SMALL DM. ABDOMEN CONTINUES TO BE DISTENDED, HARD, AND TENDER WHEN PALPATING.
[2017-10-13] MEDS: MORPHINE SULFATE 2 MG/ML SYR IVP PRN (12:14)
--- NOTE | 2017-10-13 12:14 | NUR ---
PT C/O SEVERE PAIN IN ABDOMEN, 12/21. PT REQUEST MORPHINE. MEDICATED ACCORDING TO JOSE MCDONALD.
--- NOTE | 2017-10-13 13:29 | NUR ---
CM NOTE CONCURRENT REVIEW FAXED TO [facility] [phone] AND TO DESHAWN ROSALES [phone] PH# [phone] EXT [phone], EPIFANIO AZUL [phone]
--- NOTE | 2017-10-13 13:30 | NUR ---
PT RESTING IN BED NO SIGNS OF DISTRESS, CALL LIGHT WITHIN REACH, WILL CONTINUE TO MONITOR.
--- NOTE | 2017-10-13 14:00 | NUR ---
PT IN BED NO SIGNS OF DISTRESS, WILL CONTINUE TO MONITOR.
[2017-10-13 16:00] VITALS: BP 132/88
--- NOTE | 2017-10-13 16:00 | NUR ---
PT REPORTED SMALL BM.
--- NOTE | 2017-10-13 18:30 | NUR ---
IV WAS D/C IN RIGHT HAND, WRIST BANDS REMOVED, ALL PAPERWORK SIGNED AND IN CHART. PT LEFT UNIT WALKING. PT STABLE.
--- NOTE | 2017-10-14 08:51 | NUR ---
FAXED DISCHARGE SUMMARY TO [facility] [phone] FAXED DISCHARGE SUMMARY TO [facility] [phone]
== END 2017-10-13 18:30 | disposition home or self-care (01) | DRG 244 ==
LOC: MED 10:25 → MTU 15:18 → OBSVTOIN 16:59
PROVIDERS: ADMIT Internal Medicine Pulmonary Disease; ATTEND Internal Medicine Pulmonary Disease
DX: K57.92 Diverticulitis of intestine, part unspecified, without perforation or abscess without bleeding (principal); N17.0 Acute kidney failure with tubular necrosis; R65.10 Systemic inflammatory response syndrome (SIRS) of non-infectious origin without acute organ dysfunction; E83.42 Hypomagnesemia; I10 Essential (primary) hypertension; E66.9 Obesity, unspecified; Z68.26 Body mass index [BMI] 26.0-26.9, adult; F17.210 Nicotine dependence, cigarettes, uncomplicated
CPT/HCPCS: 96361; 96365; 96375; 99285; G0378; 36415; 80048; 80053; 81001; 83690; 83735; 85025; 87040; 87081; J0295; J1650; J1885; J2060; J2270; J2405; J2543; J3475; J7120; J7613

== ENCOUNTER 2018-08-30 21:54 | Inpatient (IN) | payer OTHER ==
[~2018-08-30] VITALS: Ht 175.3 cm; Wt 86.2 kg
[2018-08-30 21:55] VITALS: BP 145/79
--- NOTE | 2018-08-30 21:57 | NUR ---
TO LOBBY A/W BED AMBULATORY
--- NOTE | 2018-08-30 23:20 | NUR ---
PT PRESENTS TO THE ED WITH C/O ABD PAIN. PER PATIENT HE HAS BEEN HAVING INTERMITTENT ABD PAIN [id number]. PT REPORTS HX OF DIVERTICULITIS. PT STATES HIS BOWEL MOVEMENTS HAVE BEEN IRREGULAR. PT SAYS HE HAS BEEN HAVING BOWEL MOVEMENTS BUT AT THE SAME TIME FEELS CONSTIPATED. PT ALSO REPORTS NAUSEA BUT DENIES VOMITING/DIARRHEA. BOWEL SOUNDS ARE PRESENT ON ALL QUADRANTS. TENDERNESS NOTED TO LOWER RIGHT AND LEFT ABD QUADRANTS. BED LOWERED WITH SIDE RAILS UP.
--- NOTE | 2018-08-30 23:25 | NUR ---
Dr. Flores examining patient.
[2018-08-30] MEDS ORDERED: NACL 0.9% 1,000 ML IV ONE (23:27)
[2018-08-30] MEDS ORDERED: ONDANSETRON 4 MG/2 ML VIAL IVP ONE (23:30)
[2018-08-30] MEDS ORDERED: KETOROLAC 30 MG/ML VIAL IVP ONE (23:30)
--- NOTE | 2018-08-30 23:35 | NUR ---
PT TAKEN TO CT
[2018-08-30 23:45] LABS: BASOPHILS # (AUTO) 0.1 K/uL (0.00-0.22); BASOPHILS % (AUTO) 0.5 % (0.0-2.0); EOSINOPHILS # (AUTO) 0.5 K/uL (0-0.4); EOSINOPHILS % (AUTO) 3.6 % (0.0-4.0); HEMATOCRIT 43.7 % (36-52); LYMPHOCYTES # (AUTO) 3.4 K/uL (2.0-11.5); LYMPHOCYTES % (AUTO) 22.5 % (20.5-51.1); MEAN CORPUSCULAR HEMOGLOBIN 31 pg (27-31); MEAN CORPUSCULAR HGB CONC 34 g/dL (33-37); MEAN CORPUSCULAR VOLUME 89.8 fL (80-94); MONOCYTES # (AUTO) 0.9 K/uL (0.8-1.0); MONOCYTES % (AUTO) 5.8 % (1.7-9.3); NEUTROPHILS # (AUTO) 10.2 K/uL (1.8-7.7); NEUTROPHILS % (AUTO) 67.6 % (42.2-75.2); PLATELET COUNT (AUTO) 351 K/uL (140-450); RED BLOOD CELL COUNT(AUTO) 4.86 MIL/uL (4.20-6.10); RED CELL DISTRIBUTION WIDTH 13.7 % (11.6-13.7); WHITE BLOOD COUNT (AUTO) 15.2 K/uL (4.8-10.8)
[2018-08-30 23:52] LABS: APPEARANCE,URINE CLEAR (CLEAR); BILIRUBIN,URINE NEGATIVE (NEGATIVE); BLOOD, URINE 1+ (NEGATIVE); COLOR,URINE YELLOW (YELLOW); LEUKOCYTE ESTERASE ,URINE NEGATIVE (NEGATIVE); NITRITE, URINE NEGATIVE (NEGATIVE); UGLUCOSE TRACE (NEGATIVE)
[2018-08-30 23:59] LABS: RBC,URINE NONE SEEN /HPF (0-5); WBC,URINE 0-5 /HPF (0-5)
[2018-08-31] LABS: ALBUMIN 3.9 g/dL (3.4-5.0); CARBON DIOXIDE 29.1 mmol/L (21-32); CREATININE 0.9 mg/dL (0.7-1.3); POTASSIUM 4.1 mmol/L (3.5-5.1); TOTAL BILIRUBIN 0.5 mg/dL (0.0-1.0)
[2018-08-31 00:01] LABS: BARBITURATE, URINE NEG. ng/ml (NEG <=200); BENZODIAZEPINE, URINE NEG. ng/mL (NEG <=200); CANNABINOID, URINE NEG. ng/mL (NEG <=50); COCAINE, URINE NEG. ng/mL (NEG <=300); OPIATE, URINE NEG. ng/mL (NEG <=2000); PHENCYCLIDINE SCREEN,URINE NEG. ng/mL (NEG <=25)
[2018-08-31] MEDS ORDERED: SIMV40TA1 PO (00:20)
[2018-08-31] MEDS ORDERED: ONDANSETRON 4 MG/2 ML VIAL IVP ONE (00:50)
[2018-08-31] MEDS ORDERED: NACL 0.9% 1,000 ML IV ONE (00:50)
[2018-08-31] MEDS ORDERED: metroNIDAZOLE 500 MG/NS PREMIX 100 ML IV ONE (00:50)
[2018-08-31] MEDS ORDERED: LEVOFLOXACIN 750 MG/D5W PREMIX 150 ML IV ONE (00:50)
[2018-08-31] MEDS ORDERED: MORPHINE SULFATE 4 MG/ML SYR IVP ONE (00:50)
--- NOTE | 2018-08-31 02:53 | NUR ---
Reba alves in [facility] - 08/31/18 at 0255 by [facility] 025- Called for second page out to Dr. Maddox for admission.
[2018-08-31] MEDS ORDERED: LIDOCAINE/EPI 1% 1:100000 20 ML VIAL INJ ONE (03:45)
--- NOTE | 2018-08-31 04:05 | NUR ---
RECEIVED BEDSIDE REPORT FROM CATTLE TRADER STEFAN. PT IS AAO X4. RESPIRATIONS ARE EQUAL AND UNLABORED ON ROOM AIR. LUNG SOUNDS ARE CLEAR. PT WITH IV ON LAC 20G CURRENTLY SL. SKIN IS INTACT. PT AMBULATED FROM WHEELCHAIR TO BED GAIT IS STEADY. C/C ABD PAIN. PT DENIES ANY NAUSEA OR PAIN AT THIS TIME. PT STATES HAD BM X4 SOFT ON 08/30 X4. PT ABDOMEN IS LARGE ROUND. BOWEL SOUNDS ON ALL QUADRANTS. MRSA SWAB OBTAINED. MEDICATION SEND TO PHARMACY. VS ARE WITHIN NORMAL LIMITS: 126/86 HR 60, 97.4 99% ON RA RR 16. ORIENTED PT TO ROOM,STAFF, AND VISITING HOURS. CALL LIGHT WITHIN REACH. WILL ROUND FREQUENTLY.
--- NOTE | 2018-08-31 04:15 | NUR ---
Patient will be admitted to care of DR CALERO. Admited to [facility] . Will go to room 119B . Belongings list completed. Report to MAURICIO CASTREJON.
[2018-08-31 04:50] VITALS: BP 126/86
--- NOTE | 2018-08-31 05:00 | NUR ---
IVF INFUSING PER ORDERS. INFORMED PT OF NPO STATUS HE VERBALIZED UNDERSTANDING. SIGN IS ON THE DOOR. CALL LIGHT WITHIN REACH.
[2018-08-31] MEDS: NACL 0.9% 1,000 ML IV SCH (05:12)
--- NOTE | 2018-08-31 07:28 | NUR ---
GAVE BEDSIDE REPORT TO DAY SHIFT RN. PT ENDORSED IN STABLE CONDITION.
--- NOTE | 2018-08-31 07:29 | NUR ---
RECEIVED REPORT FROM SENIOR SUPPORT ANALYST NURSE. PT AAOX4, LYING IN BED. LUNG SOUNDS CLEAR THROUGHOUT, RESPIRATIONS EVEN AND UNLABORED. PT REPORTED TOLERABLE PAIN RATE 5/10. IV ON LT AC 22 GA RUNNING IVF PER ORDER. IV DRESSING CLEAN, INTACT AND DRY. STOMACH IS SOFT AND ROUND, BOWEL SOUNDS AUDIBLE UPON AUSCULTATION, LBM 08/30. NO EDEMA TO EXTREMITIES. SKIN COLOR IS APPROPRIATE TO ETHNICITY, WARM TO TOUCH, SKIN IS INTACT. REVIEWED PLAN OF CARE WITH PT. PT VERBALIZED UNDERSTANDING. CALL LIGHT WITHIN REACH. WILL CONTINUE TO MONITOR.
[2018-08-31 08:00] VITALS: BP 103/49
--- NOTE | 2018-08-31 08:10 | NUR ---
PATIENT HAS BEEN SCREENED AND CATEGORIZED MODERATE NUTRITION RISK. PATIENT WILL BE SEEN WITHIN 3-5 DAYS OF ADMISSION. 09/02/18[address]
[2018-08-31] MEDS ORDERED: metroNIDAZOLE 500 MG/NS PREMIX 100 ML IV SCH (09:00)
[2018-08-31 09:51] LABS: BASOPHILS % (AUTO) 0.3 % (0.0-2.0); EOSINOPHILS # (AUTO) 0.5 K/uL (0-0.4); EOSINOPHILS % (AUTO) 4.7 % (0.0-4.0); HEMATOCRIT 39.3 % (36-52); HEMOGLOBIN 13.4 g/dL (12.0-18.0); LYMPHOCYTES # (AUTO) 1.7 K/uL (2.0-11.5); LYMPHOCYTES % (AUTO) 16.9 % (20.5-51.1); MEAN CORPUSCULAR HEMOGLOBIN 31 pg (27-31); MEAN CORPUSCULAR HGB CONC 34 g/dL (33-37); MEAN CORPUSCULAR VOLUME 89.9 fL (80-94); MONOCYTES # (AUTO) 0.7 K/uL (0.8-1.0); MONOCYTES % (AUTO) 6.7 % (1.7-9.3); NEUTROPHILS # (AUTO) 7.2 K/uL (1.8-7.7); NEUTROPHILS % (AUTO) 71.4 % (42.2-75.2); PLATELET COUNT (AUTO) 311 K/uL (140-450); RED BLOOD CELL COUNT(AUTO) 4.38 MIL/uL (4.20-6.10); RED CELL DISTRIBUTION WIDTH 13.5 % (11.6-13.7); WHITE BLOOD COUNT (AUTO) 10.1 K/uL (4.8-10.8)
[2018-08-31 10:21] LABS: ANION GAP 10.7 (8-16); CARBON DIOXIDE 26.2 mmol/L (21-32); CREATININE 0.9 mg/dL (0.7-1.3); POTASSIUM 3.9 mmol/L (3.5-5.1); TOTAL BILIRUBIN 0.5 mg/dL (0.0-1.0)
--- NOTE | 2018-08-31 10:30 | NUR ---
Pt c/o pain to abd, but states that morphine made him nauseated in ER. Offered Zofran with morphine to prevent nausea, pt agreed. Will administer meds as ordered.
[2018-08-31] MEDS: ONDANSETRON 4 MG/2 ML VIAL IVP PRN ×2 (10:40→16:06)
[2018-08-31] MEDS: MORPHINE SULFATE 2 MG/ML SYR IVP PRN ×3 (10:40→21:40)
--- NOTE | 2018-08-31 10:40 | NUR ---
PT VERBALIZED PAIN RATE 6/10, AND C/O N/V WITH MORPHINE IN THE PAST. GIVEN MORPHINE AND ZOFRAN.
--- NOTE | 2018-08-31 11:40 | NUR ---
PT VERBALIZED THAT PAIN IS REDUCED, AND DOES NOT HAVE FEELINGS OF NAUSEA. PT HAS NO SIGNS OF DISTRESS.
--- NOTE | 2018-08-31 14:05 | NUR ---
PT AAOX4, LYING IN BED WATCHING TV. PT VERBALIZED TOLERABLE PAIN AND "IM PASSING GAS." RESPIRATIONS EVEN AND UNLABORED. WILL CONTINUE TO MONITOR.
[2018-08-31 16:00] VITALS: BP 146/79
--- NOTE | 2018-08-31 16:06 | NUR ---
PT GIVEN MORPHINE FOR PAIN AND ZOFRAN TO AVOID NAUSEA. NO DISTRESS NOTED AT THIS TIME.
--- NOTE | 2018-08-31 16:18 | NUR ---
CALLED PATIENT PCP [phone] MADE F/U APPOINTMENT AT 09/05/18 AT 1:15 PM THE ADDRESS [address] [place] [address] A UPLAND WILL GIVE THE APPOINTMENT REMINDER UPON D/C .
--- NOTE | 2018-08-31 17:04 | NUR ---
Spoke to Dr. Moon on the phone re: nephro consult. BMP labs read back to physician. Per Dr Moon he will see the pt in am. Pt currently resting in bed, no signs of distress, respirations even & nonlabored, IVF NS ongoing @ 50ml/hr.
--- NOTE | 2018-08-31 17:06 | NUR ---
PT AA0X4, NO C/O PAIN OR NAUSEA AT THIS TIME. WILL CONTINUE TO MONITOR.
--- NOTE | 2018-08-31 19:15 | NUR ---
PT ENDORSED TO PRIVACY DIRECTOR NURSE FOR CONTINUITY OF CARE. NO DISTRESS NOTED AT THIS TIME.
--- NOTE | 2018-08-31 19:16 | NUR ---
REPORT RECEIVED FROM AM NURSE AT BEDSIDE. PT IN STABLE CONDITION. AAOX4. INTRODUCED SELF TO PT. BOARD UPDATED. NO COMPLAINTS OF PAIN. NO SOB. AFEBRILE. IV SITE L AC 20G RUNNING NS@50ML/HR PATENT AND INTACT. SKIN WARM, DRY, AND INTACT WITH NO OPEN WOUNDS. BED LOCKED IN LOW POSITION. CALL MARQUIS WITHIN REACH. SAFETY PRECAUTION IN PLACE. ALL NEEDS MET AT THIS TIME.
[2018-08-31] MEDS: metroNIDAZOLE 500 MG/NS PREMIX 100 ML IV SCH (20:41)
--- NOTE | 2018-08-31 20:41 | NUR ---
LOPRESSOR AND ZOCOR GIVEN PO. PERCY MAYA AND RIDGE. PT TOLERATED WELL.
[2018-08-31] MEDS: METOPROLOL 25 MG TAB PO SCH (20:42)
[2018-08-31] MEDS: SIMVASTATIN 40 MG TAB PO SCH (20:42)
--- NOTE | 2018-08-31 21:40 | NUR ---
MORPHINE GIVEN FOR SEVERE ABDOMINAL PAIN. PT TOLERATED WELL
--- NOTE | 2018-08-31 21:55 | NUR ---
PULMONARY GROUP CALLED. DR. FARFAN CEMENT [place] [address]. AWAITING CALL BACK.
[2018-08-31] MEDS ORDERED: ZOLPIDEM 5 MG TAB PO PRN (22:00)
--- NOTE | 2018-08-31 22:00 | NUR ---
MD CALL BACK. INFORMED MD THAT PATIENT NEEDS MEDICATION TO HELP HIM SLEEP. MD ORDERED 5MG AMBIEN PO QHS PRN. TORB.
[2018-08-31] MEDS: LEVOFLOXACIN 500 MG/D5W PREMIX 100 ML IV SCH (23:04)
--- NOTE | 2018-08-31 23:04 | NUR ---
LIZANDRO HUNG AND RUNNING. NO REACTION TO MEDICATION. PT TOLERATING WELL.
[2018-09-01] VITALS: BP 123/75
--- NOTE | 2018-09-01 00:03 | NUR ---
AMBIEN GIVEN FOR INSOMNIA. PT TOLERATED WELL.
[2018-09-01] MEDS: NACL 0.9% 1,000 ML IV SCH ×2 (00:06→21:03)
--- NOTE | 2018-09-01 02:40 | NUR ---
PT SLEEPING COMFORTABLY BUT AROUSABLE. NO S/S OF DISTRESS NOTED. RESPIRATIONS EVEN, UNLABORED, AND WNL. WILL CONTINUE TO MONITOR.
[2018-09-01] MEDS: metroNIDAZOLE 500 MG/NS PREMIX 100 ML IV SCH ×3 (04:28→20:44)
--- NOTE | 2018-09-01 04:28 | NUR ---
PERCY HUNG AND RUNNING. PT TOLERATING WELL.
--- NOTE | 2018-09-01 05:30 | NUR ---
BLOOD DRAWN THROUGH PICC LINE. Addendum: 09/01/18 at 0618 by Iker Barrera RN WRONG PATIENT.
[2018-09-01 05:59] LABS: ALBUMIN 2.9 g/dL (3.4-5.0); ANION GAP 11.2 (8-16); CARBON DIOXIDE 27.8 mmol/L (21-32); CREATININE 0.9 mg/dL (0.7-1.3); TOTAL BILIRUBIN 0.5 mg/dL (0.0-1.0)
--- NOTE | 2018-09-01 06:00 | NUR ---
PT SLEEPING COMFORTABLY IN BED. NO S/S OF DISTRESS NOTED. WILL CONTINUE TO MONITOR.
[2018-09-01 06:33] LABS: BASOPHILS # (AUTO) 0.1 K/uL (0.00-0.22); BASOPHILS % (AUTO) 0.6 % (0.0-2.0); EOSINOPHILS # (AUTO) 0.4 K/uL (0-0.4); HEMATOCRIT 38.8 % (36-52); LYMPHOCYTES % (AUTO) 24.5 % (20.5-51.1); MEAN CORPUSCULAR HEMOGLOBIN 31 pg (27-31); MEAN CORPUSCULAR HGB CONC 34 g/dL (33-37); MEAN CORPUSCULAR VOLUME 91.2 fL (80-94); MONOCYTES # (AUTO) 0.8 K/uL (0.8-1.0); MONOCYTES % (AUTO) 9.7 % (1.7-9.3); NEUTROPHILS # (AUTO) 4.8 K/uL (1.8-7.7); NEUTROPHILS % (AUTO) 60.2 % (42.2-75.2); PLATELET COUNT (AUTO) 291 K/uL (140-450); RED BLOOD CELL COUNT(AUTO) 4.26 MIL/uL (4.20-6.10); RED CELL DISTRIBUTION WIDTH 13.8 % (11.6-13.7); WHITE BLOOD COUNT (AUTO) 8.1 K/uL (4.8-10.8)
--- NOTE | 2018-09-01 07:29 | NUR ---
RECEIVED BEDSIDE REPORT FROM MAURICIO NOONAN. PT STABLE, AWAKE, ALERT AND ORIENTED X4. DENIES PAIN OR SOB. NO SIGNS OF DISTRESS NOTED. NO REDNESS, SWELLING, OR INFLAMMATION NOTED ON IV SITE. CALL MARQUIS WITHIN REACH. BED IN LOWEST POSITION. SAFETY MEASURES IN PLACE. PLAN OF CARE REVIEWED.
--- NOTE | 2018-09-01 07:30 | NUR ---
REPORT GIVEN TO AM NURSE AT BEDSIDE. PT IN STABLE CONDITION.
[2018-09-01 08:00] VITALS: BP 121/61
[2018-09-01] MEDS: METOPROLOL 25 MG TAB PO SCH ×2 (09:00→20:44)
[2018-09-01] MEDS: LOSARTAN 50 MG TAB PO SCH (09:17)
--- NOTE | 2018-09-01 09:19 | NUR ---
RECHECKED BP AND HR. ADMINISTERED SCHEDULED [place] FOR BP 134/72. HELD SCHEDULED METOPROLOL FOR HR 50. WILL CONTINUE TO MONITOR PT.
--- NOTE | 2018-09-01 10:20 | NUR ---
PT STABLE, SLEEPING, BUT EASILY AROUSABLE. NO SIGNS OF DISTRESS NOTED.
--- NOTE | 2018-09-01 11:15 | NUR ---
DR FARFAN AT THE BEDSIDE.
[2018-09-01] MEDS ORDERED: TEMAZEPAM 15 MG CAP PO PRN (12:50)
--- NOTE | 2018-09-01 12:54 | NUR ---
ADMINISTERED SCHEDULED MEDICATION, PT TOLERATED WELL. NO OTHER NEEDS AT THIS TIME.
--- NOTE | 2018-09-01 12:58 | NUR ---
PROVIDED THE REMINDER OF APPOINTMENT PAPER WITH PCP TO THE PATIENT AND PATIENT VERBALIZED UNDERSTANDING.
--- NOTE | 2018-09-01 14:30 | NUR ---
LINENS AND GOWN CHANGED. PT STABLE. NO OTHER NEEDS AT THIS TIME.
[2018-09-01 16:00] VITALS: BP 116/72
--- NOTE | 2018-09-01 16:20 | NUR ---
VITAL SIGNS TAKEN, PT STABLE. NO OTHER NEEDS AT THIS TIME.
--- NOTE | 2018-09-01 17:10 | NUR ---
PT RESTING IN BED, STABLE. NO OTHER NEEDS AT THIS TIME.
--- NOTE | 2018-09-01 19:20 | NUR ---
RECEIVED BEDSIDE REPORT FROM DAY SHIFT NURSE. PATIENT IS AWAKE, ALERT, AND COOPERATIVE. RESPIRATION EVEN UNLABORED ON ROOM AIR. NO DISTRESS NOTED. SKIN IS WARM AND DRY. IV PATENT INTACT AND PATENT. PLAN OF CARE WAS DISCUSSED. ALL SAFETY MEASURES IN PLACE. BED IS AT LOW POSITION. CALL LIGHT WITHIN REACH AND VERBALIZES ITS USE. WILL CONTINUE TO MONITOR
--- NOTE | 2018-09-01 19:25 | NUR ---
ENDORSED PT TO RN KRISTIAN FOR CONTINUITY OF CARE. PT STABLE.
--- NOTE | 2018-09-01 20:00 | NUR ---
INITIAL ASSESSMENT DONE. VITALS WERE TAKEN. PATIENT CONDITION STABLE. NO DISTRESS NOTED. WILL CONTINUE TO MONITOR.
[2018-09-01] MEDS: SIMVASTATIN 40 MG TAB PO SCH (20:44)
--- NOTE | 2018-09-01 21:00 | NUR ---
ALL SCHEDULED MEDS WERE GIVEN PER ORDER. NO ASE NOTED. WILL CONTINUE TO MONITOR
--- NOTE | 2018-09-01 22:00 | NUR ---
PATIENT IN BED WATCHING TV RESPIRATION EVEN UNLABORED ON ROOM AIR. NO DISTRESS NOTED. WILL CONTINUE TO MONITOR
[2018-09-01] MEDS: LEVOFLOXACIN 500 MG/D5W PREMIX 100 ML IV SCH (23:45)
--- NOTE | 2018-09-01 23:45 | NUR ---
PATIENT COULDN'T FALL ASLEEP REQUEST FOR SLEEPING AID. PRN SLEEPING MEDS ADMINISTERED PER ORDER. WILL CONTINUE TO MONITOR.
[2018-09-02] VITALS: BP 142/82
--- NOTE | 2018-09-02 | NUR ---
VITALS WERE TAKEN. PATIENT CONDITION STABLE. NO DISTRESS NOTED. WILL CONTINUE TO MONITOR.
--- NOTE | 2018-09-02 02:00 | NUR ---
CHECKED ON PATIENT. PATIENT SLEEPING RESPIRATION EVEN UNLABORED ON ROOM AIR. NO DISTRESS NOTED. WILL CONTINUE TO MONITOR.
--- NOTE | 2018-09-02 04:00 | NUR ---
CHECKED ON PATIENT. PATIENT SLEEPING RESPIRATION EVEN UNLABORED ON ROOM AIR. NO DISTRESS NOTED. WILL CONTINUE TO MONITOR.
[2018-09-02] MEDS: metroNIDAZOLE 500 MG/NS PREMIX 100 ML IV SCH ×2 (04:59→12:49)
[2018-09-02 07:07] LABS: BASOPHILS # (AUTO) 0.1 K/uL (0.00-0.22); BASOPHILS % (AUTO) 0.8 % (0.0-2.0); EOSINOPHILS # (AUTO) 0.5 K/uL (0-0.4); EOSINOPHILS % (AUTO) 8.2 % (0.0-4.0); HEMATOCRIT 38.9 % (36-52); HEMOGLOBIN 13.3 g/dL (12.0-18.0); LYMPHOCYTES # (AUTO) 1.8 K/uL (2.0-11.5); LYMPHOCYTES % (AUTO) 28.4 % (20.5-51.1); MEAN CORPUSCULAR HEMOGLOBIN 31 pg (27-31); MEAN CORPUSCULAR HGB CONC 34 g/dL (33-37); MEAN CORPUSCULAR VOLUME 91.4 fL (80-94); MONOCYTES # (AUTO) 0.7 K/uL (0.8-1.0); MONOCYTES % (AUTO) 11.3 % (1.7-9.3); NEUTROPHILS # (AUTO) 3.2 K/uL (1.8-7.7); NEUTROPHILS % (AUTO) 51.3 % (42.2-75.2); PLATELET COUNT (AUTO) 288 K/uL (140-450); RED BLOOD CELL COUNT(AUTO) 4.25 MIL/uL (4.20-6.10); RED CELL DISTRIBUTION WIDTH 13.5 % (11.6-13.7); WHITE BLOOD COUNT (AUTO) 6.3 K/uL (4.8-10.8)
--- NOTE | 2018-09-02 07:22 | NUR ---
RECEIVED BEDSIDE REPORT FROM MAURICIO TOWNSEND. PT STABLE, AWAKE, ALERT AND ORIENTED X4. DENIES PAIN OR SOB. NO SIGNS OF DISTRESS NOTED. NO REDNESS, SWELLING, OR INFLAMMATION NOTED ON IV SITE. CALL MARQUIS WITHIN REACH. BED IN LOWEST POSITION. SAFETY MEASURES IN PLACE. PLAN OF CARE REVIEWED.
--- NOTE | 2018-09-02 07:23 | NUR ---
ENDORSED PATIENT TO DAY SHIFT NURSE FOR CONTINUITY OF CARE. PATIENT IS IN STABLE CONDITION.
[2018-09-02 07:43] LABS: ALBUMIN 2.9 g/dL (3.4-5.0); ANION GAP 12.4 (8-16); CARBON DIOXIDE 27.9 mmol/L (21-32); CREATININE 0.9 mg/dL (0.7-1.3); POTASSIUM 4.3 mmol/L (3.5-5.1); TOTAL BILIRUBIN 0.4 mg/dL (0.0-1.0)
[2018-09-02 08:00] VITALS: BP 149/83
--- NOTE | 2018-09-02 08:15 | NUR ---
PT IS HUNGRY AND ASKING FOR FOOD, PT IS CURRENTLY NPO AT THIS TIME. PER DR FARFAN'S NOTES, HE WILL ADVANCE DIET TOLERATED AFTER EVALUATING PT. INFORMED PT THAT DR FARFAN HAS TO COME AND EVALUATE HIM FIRST. PT IS UPSET, WAITING FOR MD. OFFERED PT SOME MORE FOOD.
[2018-09-02] MEDS: METOPROLOL 25 MG TAB PO SCH (09:00)
[2018-09-02] MEDS: LOSARTAN 50 MG TAB PO SCH (09:37)
--- NOTE | 2018-09-02 09:39 | NUR ---
ADMINISTERED SCHEDULED [place], HELD SCHEDULED METOPROLOL FOR HR 50. PT TOLERATED WELL. NO OTHER NEEDS AT THIS TIME.
--- NOTE | 2018-09-02 11:35 | NUR ---
DR DUARTE AT THE BEDSIDE.
--- NOTE | 2018-09-02 12:10 | NUR ---
PT IS EATING LUNCH AT THIS TIME.
--- NOTE | 2018-09-02 12:55 | NUR ---
ADMINISTERED SCHEDULED MEDICATION, PT TOLERATED WELL. GAVE PT INFORMATION REGARDING SOFT FOOD MEAL PLANS, PT SIGNED INSTRUCTIONS SIGNATURE PAGE. WILL CONTINUE TO MONITOR PT.
--- NOTE | 2018-09-02 13:20 | NUR ---
PT STABLE, RESTING IN BED. NO OTHER NEEDS AT THIS TIME.
[2018-09-02] MEDS ORDERED: METR250T2 PO (14:57)
[2018-09-02] MEDS ORDERED: LEVO750T2 PO (14:58)
[2018-09-02] MEDS ORDERED: LOSA100T51 PO (14:58)
--- NOTE | 2018-09-02 15:50 | NUR ---
D/C INSTRUCTIONS, PAPERWORK, AND PRESCRIPTION GIVEN. PT VERBALIZED UNDERSTANDING. QUESTIONS AND CONCERNS WERE ADDRESSED. PT'S MEDICATION PICKED UP FROM PHARMACY AND GIVEN TO PATIENT. D/C IV, CATHETER TIP INTACT, BLEEDING CONTROLLED. PT STABLE, AAOX4, COMMUNICATES APPROPRIATELY WITH STAFF. SKIN INTACT, PNEUMONIA VACCINE N/A, FLU VACCINE NOT IN SEASON. PT TOOK ALL BELONGINGS HOME. ESCORTED PT TO THE LOBBY.
== END 2018-09-02 16:00 | disposition home or self-care (01) | DRG 244 ==
LOC: MED 21:54 → MTU 08-31 03:31
PROVIDERS: ADMIT Internal Medicine; ATTEND Internal Medicine
DX: K57.32 Diverticulitis of large intestine without perforation or abscess without bleeding (principal); E87.1 Hypo-osmolality and hyponatremia; E78.5 Hyperlipidemia, unspecified; T50.2X5A Adverse effect of carbonic-anhydrase inhibitors, benzothiadiazides and other diuretics, initial encounter; I10 Essential (primary) hypertension; E66.3 Overweight; Y92.89 Other specified places as the place of occurrence of the external cause; Z79.82 Long term (current) use of aspirin; Z79.899 Other long term (current) drug therapy; Z86.73 Personal history of transient ischemic attack (TIA), and cerebral infarction without residual deficits; Z68.28 Body mass index [BMI] 28.0-28.9, adult
CPT/HCPCS: 36415; 80053; 80305; 81001; 83605; 83690; 85025; 87040; 87081; 96365; 96367; 96375; 96376; 99285; G0482; J1885; J1956; J2001; J2270; J2405; J3490; J7030